=== PATIENT | male | born 1955 | race Caucasian/White ===

== ENCOUNTER 2017-05-30 06:41 | Emergency (ER) | payer MEDICARE, OTHER ==
[2017-05-30 06:42] VITALS: BMI 37.5
[2017-05-30 06:54] VITALS: RESP 20; TEMP 97.7; O2SAT 98
--- NOTE | 2017-05-30 08:32 | C.PDOC ---
History Of Present Illness 62-year-old male, presents to the emergency department with complaints of left toe pain since last night, after stubbing it against the tub. No other injuries. Denies nausea/vomiting, numbness/weakness, head injury, loss of consciousness or any other associated symptoms. No other complaints at this time. Of note, patient diagnosed with gout via blood work, but has never had an exacerbation. Time Seen by Provider: 05/30/17 07:14 Chief Complaint (Nursing): Lower Extremity Problem/Injury History Per: Patient History/Exam Limitations: no limitations Onset/Duration Of Symptoms: Hrs Current Symptoms Are (Timing): Still Present Severity: Moderate Past Medical History Reviewed: Historical Data, Nursing Documentation, Vital Signs Vital Signs: Last Vital Signs Temp 97.7 F 05/30/17 06:50 Pulse 89 05/30/17 08:49 Resp 20 05/30/17 08:49 BP 137/86 05/30/17 08:49 Pulse Ox 98 05/30/17 08:49 - Medical History PMH: Atrial Fibrillation, CHF, HTN, Hypercholesterolemia, Pneumonia ( A CHILD) Denies: HIV, Chronic Kidney Disease Surgical History: Coronary Stent (x2) - [facility] Procedures CLOSURE SKIN & SUBCUTANEOUS NEC (11/16/13) TETANUS TOXOID ADMINIST (11/16/13) Family History: States: No Known Family Hx - Social History Hx Tobacco Use: No Hx Alcohol Use: No Hx Substance Use: No - Immunization History Hx Tetanus Toxoid Vaccination: No Hx Influenza Vaccination: No Hx Pneumococcal Vaccination: No Review Of Systems Constitutional: Negative for: Fever Gastrointestinal: Negative for: Nausea, Vomiting Musculoskeletal: Positive for: Other (left toe pain) Neurological: Negative for: Weakness, Numbness, Headache, Dizziness Physical Exam - Physical Exam Appears: Non-toxic, No Acute Distress Skin: Warm, Dry, No Rash Head: Atraumatic, Normacephalic Eye(s): bilateral: Normal Inspection, EOMI Nose: Normal Oral Mucosa: Moist Neck: Normal ROM, Supple Chest: Symmetrical Respiratory: No Accessory Muscle Use Extremity: No Normal ROM (decreased ROM secondary to pain), Tenderness, Capillary Refill (<2 seconds), No Deformity, Other (Left great toe with erythema and tenderness to palpation) Pulses: Left Dorsalis Pedis: Normal, Right Dorsalis Pedis: Normal Neurological/Psych: Normal Sensation ED Course And Treatment O2 Sat by Pulse Oximetry: 98 - Other Rad Toe XR X-Ray: Viewed By Me, Read By Radiologist Interpretation: PROCEDURE: Radiographs of the left great toe. TECHNIQUE:: AP radiograph of the left foot, with oblique and lateral view of the left great toe. COMPARISON: None available. FINDINGS: BONES: No acute displaced fracture. Degenerative changes. JOINTS: No dislocation. Joint space narrowing. SOFT TISSUES: Unremarkable. No evidence of radiopaque foreign body. OTHER FINDINGS: None. IMPRESSION: No acute displaced fracture or dislocation identified. Progress Note: Patient given PO Motrin. XR ordered and reviewed. Gutierrez taping and foot placed in cast shoe by tech, he will be discharged for outpatient f/u with ortho/peds. Discussed ddx including but not limited to contusion and gout. Disposition - Disposition Referrals: Rao Hernandez DPM [[facility]] - Disposition: HOME/ ROUTINE Disposition Time: 08:40 Condition: STABLE Additional Instructions: Follow up with podiatry in 1-2 days. Return to ER if symptoms persist or worsen. Prescriptions: Naproxen [Naprosyn] 1 tab PO BID PRN #25 tab PRN Reason: Pain Instructions: Osteoarthritis (ED) Forms: [facility] (Uzbek) - Clinical Impression Clinical Impression: Toe contusion - Scribe Statement The provider has reviewed the documentation as recorded by the Scribe (Shanel Locke) All medical record entries made by the Scribe were at my direction and personally dictated by me. I have reviewed the chart and agree that the record accurately reflects my personal performance of the history, physical exam, medical decision making, and the department course for this patient. I have also personally directed, reviewed, and agree with the discharge instructions and disposition.
[2017-05-30 08:50] VITALS: BP 137/86; PULSE 89
--- NOTE | 2017-05-30 11:25 | RAD ---
PROCEDURE: Radiographs of the left great toe. TECHNIQUE:: AP radiograph of the left foot, with oblique and lateral view of the left great toe. COMPARISON: None available FINDINGS: BONES: No acute displaced fracture. Degenerative changes. JOINTS: No dislocation. Joint space narrowing. SOFT TISSUES: Unremarkable. No evidence of radiopaque foreign body. OTHER FINDINGS: None. IMPRESSION: No acute displaced fracture or dislocation identified.
== END 2017-05-30 08:50 | disposition home or self-care (01) ==
LOC: C.ER 06:41
DX: S90.112A Contusion of left great toe without damage to nail, initial encounter (principal); W22.8XXA Striking against or struck by other objects, initial encounter

== ENCOUNTER 2017-10-23 15:56 | Emergency (ER) | payer MEDICARE, OTHER ==
[2017-10-23 15:57] VITALS: BMI 37.5
[2017-10-23 16:24] VITALS: RESP 20
--- NOTE | 2017-10-23 17:22 | C.PDOC ---
History Of Present Illness 62-year-old male, presents to the emergency department with complaints pain in left shoulder while he was changing a tire last night. Patient reports that today he had difficulty moving his arm, prompting visit. Denies nausea/vomiting , numbness/weakness, chest pain, SOB, palpitations, or headache. Time Seen by Provider: 10/23/17 16:28 Chief Complaint (Nursing): Upper Extremity Problem/Injury History Per: Patient History/Exam Limitations: no limitations Onset/Duration Of Symptoms: Hrs Past Medical History Reviewed: Historical Data, Nursing Documentation, Vital Signs Vital Signs: Last Vital Signs Temp 97.9 F 10/23/17 17:26 Pulse 98 H 10/23/17 17:26 Resp 20 10/23/17 17:26 BP 137/82 10/23/17 17:37 Pulse Ox 98 10/24/17 15:47 - Medical History PMH: Atrial Fibrillation, CHF, HTN, Hypercholesterolemia, Pneumonia ( A CHILD) Denies: HIV, Chronic Kidney Disease Surgical History: Coronary Stent (x3) - [facility] Procedures CLOSURE SKIN & SUBCUTANEOUS NEC (11/16/13) TETANUS TOXOID ADMINIST (11/16/13) Family History: States: No Known Family Hx - Social History Hx Tobacco Use: No Hx Alcohol Use: No Hx Substance Use: No - Immunization History Hx Tetanus Toxoid Vaccination: No Hx Influenza Vaccination: No Hx Pneumococcal Vaccination: No Review Of Systems Constitutional: Negative for: Fever Gastrointestinal: Negative for: Vomiting Musculoskeletal: Positive for: Shoulder Pain. Negative for: Neck Pain Neurological: Negative for: Weakness, Numbness Physical Exam - Physical Exam Appears: Non-toxic, No Acute Distress Skin: Warm, Dry, No Rash Head: Normacephalic Eye(s): bilateral: PERRL Nose: Normal Oral Mucosa: Moist Lips: Normal Appearing Neck: Normal ROM Cardiovascular: Rhythm Regular, No Murmur Respiratory: Normal Breath Sounds, No Accessory Muscle Use Extremity: No Deformity, Other (+tenderness L lateral shoulder. Unable to AB duct shoulder past 90 degrees) Neurological/Psych: Oriented x3, Normal Speech ED Course And Treatment O2 Sat by Pulse Oximetry: 98 (RA) Pulse Ox Interpretation: Normal Medical Decision Making Medical Decision Making: The shoulder xray shows a calcified tendonitis, no fractures or dislocations. Shoulder sling was applied by the sleep lab technologist. Disposition - Disposition Referrals: Rebecca Marte MD [Staff Provider] - Disposition: HOME/ ROUTINE Disposition Time: 17:21 Condition: FAIR Additional Instructions: Follow up with the Orthopedist within 1-2 days. return if worsened. Prescriptions: Acetaminophen [Tylenol] 325 mg PO Q6 PRN #30 tab PRN Reason: Pain, Mild (1-3) Instructions: Shoulder Sprain, Tendonitis Forms: [facility] (Malagasy) - Clinical Impression Clinical Impression: Shoulder sprain - Scribe Statement The provider has reviewed the documentation as recorded by the Scribe (Shanel Locke) All medical record entries made by the Scribe were at my direction and personally dictated by me. I have reviewed the chart and agree that the record accurately reflects my personal performance of the history, physical exam, medical decision making, and the department course for this patient. I have also personally directed, reviewed, and agree with the discharge instructions and disposition.
[2017-10-23 17:27] VITALS: PULSE 98; TEMP 97.9
[2017-10-23 17:39] VITALS: BP 137/82
--- NOTE | 2017-10-23 18:23 | RAD ---
PROCEDURE: Radiographs of the Left Shoulder HISTORY: shoulder injury, pain to the lateral shoulder COMPARISON: No prior. FINDINGS: BONES: Normal. No fracture. JOINTS: Normal. Glenohumeral and acromioclavicular joints preserved. No osteoarthritis. SOFT TISSUES: Evidence of calcific tendinopathy. OTHER FINDINGS: None. IMPRESSION: No acute findings related to/accounting for the clinical presentation. Additional benign and/or incidental findings described above. Concordant results with the preliminary interpretation rendered by the emergency department physician procedure.
[2017-10-23 20:51] VITALS: O2SAT 98
== END 2017-10-23 17:39 | disposition home or self-care (01) ==
LOC: C.ER 15:56
DX: S43.402A Unspecified sprain of left shoulder joint, initial encounter (principal); X58.XXXA Exposure to other specified factors, initial encounter; E78.00 Pure hypercholesterolemia, unspecified; I48.91 Unspecified atrial fibrillation; I10 Essential (primary) hypertension; I50.9 Heart failure, unspecified